=== PATIENT | female | born 1970 | race Caucasian/White ===

== ENCOUNTER 2016-08-22 10:32 | Outpatient (CLI) | payer MEDICAID | END 2016-08-22 10:33 | disposition home or self-care (01) | DX: Z53.9 Procedure and treatment not carried out, unspecified reason (principal) ==

== ENCOUNTER 2016-08-23 10:47 | Outpatient (CLI) | payer MEDICAID | END 2016-08-23 10:48 | disposition home or self-care (01) | DX: N64.52 Nipple discharge (principal) ==

== ENCOUNTER 2016-09-11 08:49 | Outpatient (CLI) | payer MEDICAID | END 2016-09-11 08:50 | disposition home or self-care (01) | DX: N39.0 Urinary tract infection, site not specified (principal) ==

== ENCOUNTER 2017-01-23 16:39 | Outpatient (CLI) | payer MEDICAID | END 2017-01-23 16:40 | LOC: LAB.R 16:39 | PROVIDERS: ATTEND Nurse Practitioner Gerontology | DX: N39.0 Urinary tract infection, site not specified (principal) | CPT/HCPCS: 87086 ==

== ENCOUNTER 2017-06-22 08:57 | Emergency (ER) | payer MEDICAID ==
--- NOTE | 2017-06-22 09:39 | ED Physician Documentation ---
History of Present Illness - Stated complaint Stated Complaint: RAPID HEARTBEAT - Chief complaint Chief Complaint: General - History obtained from History obtained from: Patient - History of Present Illness Timing: Prior to arrival (Pt states that for the last week she has had multiple episodes of palpitations, no chest pain with them, some dizziness, no headache. Has not had symptoms while in the ER>) Review of Systems Constitutional: denies: Fever, Chills Eyes: denies: Photophobia Ears: denies: Tinnitus/ringing Throat: denies: Sore throat Cardiac: reports: Palpitations. denies: Chest pain / pressure, Pedal edema Respiratory: denies: Dyspnea, Cough GI: denies: Abdominal Pain, Nausea, Vomiting, Constipation, Diarrhea : reports: Dysuria. 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 - Present Medications Home Medications: Ambulatory Orders Medication Instructions Recorded Confirmed Albuterol [Ventolin Hfa] 2 puffs INH BID 07/28/14 06/22/17 Fluticasone/Salmeterol 100/50 2 puffs PO BID 07/28/14 06/22/17 [Advair 100 Mcg/50 Mcg] Propranolol [Inderal] 5 mg PO DAILY 07/28/14 06/22/17 QUEtiapine [SEROquel] 600 mg PO DAILY 07/28/14 06/22/17 diphenhydrAMINE [Benadryl] 50 mg PO DAILY 07/28/14 06/22/17 Cetirizine [ZyrTEC] 10 mg PO DAILY 12/30/15 06/22/17 Gabapentin [Neurontin] 1 cap PO TID 06/22/17 06/22/17 buPROPion [Wellbutrin Sr] 1 tab PO DAILY 06/22/17 06/22/17 risperiDONE [RisperDAL] 2 mg PO BID 06/22/17 06/22/17 - Allergies Allergies/Adverse Reactions: Allergies Allergy/AdvReac Type Severity Reaction Status Date / Time No Known Drug Allergies Allergy Verified 07/28/14 14:01 - Social History Does the pt smoke?: No Smoking Status: Former smoker Does the pt drink ETOH?: No Does the pt have substance abuse?: No - Immunizations Immunizations are current?: Yes - POLST Patient has POLST: No PD ED PE NORMAL - General General: Alert and oriented X 3 - HEENT HEENT: Atraumatic, PERRL, EOMI, Moist mucous membranes - Cardiac Cardiac: RRR, No murmur, No gallop, No rub - Respiratory Respiratory: No respiratory distress, Clear bilaterally - Abdomen Abdomen: Soft, Non tender, Non distended - Back Back: No CVA TTP - Derm Derm: Normal color, Warm and dry, No rash - Extremities Extremities: No edema - Neuro Neuro: Alert and oriented X 3 Eye Opening: Spontaneous Motor: Obeys Commands Verbal: Oriented GCS Score: 15 - Psych Psych: Normal mood, Normal affect Results - Vitals Vitals: Vital Signs - 24 hr 06/22/17 06/22/17 09:15 11:06 Temperature 36.4 C L 36.4 C L Heart Rate 95 93 Respiratory 24 24 Rate Blood Pressure 118/79 113/80 O2 Saturation 94 95 Oxygen O2 Source Room air - EKG (time done) 0909 Rate: Rate (enter#) Rhythm: NSR [place]: Normal Intervals: Normal [place], QRS normal QRS: Normal Ischemia: Normal ST segments - Labs Labs: Laboratory Tests 06/22/17 06/22/17 06/22/17 10:07 10:07 10:07 WBC 4.4 L RBC 4.26 Hgb 13.4 Hct 39.5 MCV 92.8 MCH 31.4 H MCHC 33.9 RDW 14.2 Plt Count 190 MPV 9.2 Neut # 2.5 Lymph # 1.4 L [place] # 0.4 Eos # 0.1 Baso # 0.0 Absolute Nucleated RBC 0.00 Nucleated RBC % 0.0 Sodium 137 Potassium 4.0 Chloride 105 Carbon Dioxide 22 Anion Gap 10.0 BUN 9 Creatinine 0.8 Estimated GFR (MDRD) 77 L Glucose 107 H Calcium 9.0 Total Bilirubin 0.3 AST 24 ALT 25 Alkaline Phosphatase 64 Total Protein 6.8 Albumin 3.8 Globulin 3.0 Albumin/Globulin Ratio 1.3 Lipase 25 TSH 1.72 Urine Color Urine Clarity Urine pH Ur Specific [place] Urine Protein Urine Glucose (UA) Urine Ketones Urine Occult Blood Urine Nitrite Urine Bilirubin Urine Urobilinogen Ur Leukocyte Esterase Ur Microscopic Review Urine Culture Comments 06/22/17 10:12 WBC RBC Hgb Hct MCV MCH MCHC RDW Plt Count MPV Neut # Lymph # [place] # Eos # Baso # Absolute Nucleated RBC Nucleated RBC % Sodium Potassium Chloride Carbon Dioxide Anion Gap BUN Creatinine Estimated GFR (MDRD) Glucose Calcium Total Bilirubin AST ALT Alkaline Phosphatase Total Protein Albumin Globulin Albumin/Globulin Ratio Lipase TSH Urine Color YELLOW Urine Clarity CLEAR Urine pH 7.0 Ur Specific [place] <=1.005 Urine Protein NEGATIVE Urine Glucose (UA) NEGATIVE Urine Ketones NEGATIVE Urine Occult Blood NEGATIVE Urine Nitrite NEGATIVE Urine Bilirubin NEGATIVE Urine Urobilinogen 0.2 (NORMAL) Ur Leukocyte Esterase NEGATIVE Ur Microscopic Review NOT INDICATED Urine Culture Comments NOT INDICATED - Rads (name of study) CXR Radiology: Final report received, EMP read contemporaneously PD MEDICAL DECISION MAKING - ED course Complexity details: d/w patient ED course: Pt w/o symptoms while here in the ER> labs unremarkable. TSH normal, ECG unremarkable. Pt states that she feels like this may have been anxiety. We discussed her symptoms. She was informed that she needed to follow up with her primary care provider to discuss further treatment and evaluation. she was given return precautions and expressed understanding. Departure - Departure Disposition: 01 Home, Self Care Clinical Impression: Palpitations Condition: Good Instructions: Heart Palpitations Follow-Up: Geraldine Madden ARNP [Primary Care Provider] - Comments: Follow up with your primary care provider and return to the ER for any new or worsening symptoms.
--- NOTE | 2017-06-22 10:12 | XRAY Preliminary Report ---
Exam: XR CHEST 2 VIEW PA/LAT IMPRESSION: No evidence for acute cardiopulmonary process. [facility] SITE ID: [id number]
--- NOTE | 2017-06-22 10:15 | XRAY Report ---
EXAM: CHEST RADIOGRAPHY EXAM DATE: 06/22/2017 09:52 AM. CLINICAL HISTORY: Palpitations. COMPARISON: 07/28/2014. TECHNIQUE: 2 views. FINDINGS: Lungs/Pleura: No focal opacities evident. No pleural effusion. No pneumothorax. Normal volumes. Mediastinum: Heart and mediastinal contours are unremarkable. Other: None. IMPRESSION: No evidence for acute cardiopulmonary process. [facility] Referring Provider Line: [phone] SITE ID: [id number]
[2017-06-22 10:20] LABS: BASOPHILS % (AUTO) 0.8 %; EOSINOPHILS # (AUTO) 0.1 10^3/uL (0.0-0.7); EOSINOPHILS % (AUTO) 3.4 %; HCT - HEMATOCRIT 39.5 % (37.0-47.0); HGB - HEMOGLOBIN 13.4 g/dL (12.0-16.0); LYMPHOCYTES # (AUTO) 1.4 10^3/uL (1.5-3.5); LYMPHOCYTES % (AUTO) 31.2 %; MEAN CORPUSCULAR HEMOGLOBIN 31.4 pg (27.0-31.0); MEAN CORPUSCULAR HGB CONC 33.9 g/dL (32.0-36.0); MEAN CORPUSCULAR VOLUME 92.8 fL (81.0-99.0); MEAN PLATELET VOLUME 9.2 fL (7.9-10.8); MONOCYTES # (AUTO) 0.4 10^3/uL (0.0-1.0); MONOCYTES % (AUTO) 8.2 %; NEUTROPHILS # (AUTO) 2.5 10^3/uL (1.5-6.6); NEUTROPHILS % (AUTO) 56.4 %; RED BLOOD COUNT 4.26 10^6/uL (4.20-5.40); RED CELL DISTRIBUTION WIDTH 14.2 % (12.0-15.0); UNCORRECTED WHITE BLOOD COUNT 4.4 x10^3/uL; WHITE BLOOD COUNT 4.4 x10^3/uL (4.8-10.8)
[2017-06-22 10:35] LABS: ALBUMIN/GLOBULIN RATIO 1.3 (1.0-2.2); BILIRUBIN,TOTAL 0.3 mg/dL (0.2-1.0); CREATININE 0.8 mg/dL (0.4-1.0); TOTAL PROTEIN 6.8 g/dL (6.7-8.2)
[2017-06-22 10:44] LABS: BILIRUBIN,URINE NEGATIVE (NEGATIVE)
[2017-06-22 10:48] LABS: UA CHARGE (STRIP ONLY) YES; UR CULTURE IF IND NOT INDICATED
[2017-06-22 11:07] VITALS: BP 113/80
== END 2017-06-22 11:49 | disposition home or self-care (01) ==
LOC: ED 08:57
DX: R00.2 Palpitations (principal); J44.9 Chronic obstructive pulmonary disease, unspecified; J45.909 Unspecified asthma, uncomplicated; Z87.891 Personal history of nicotine dependence
CPT/HCPCS: 36415; 71020; 80053; 81001; 81003; 83690; 84443; 85025; 87086; 93005; 99283; 99284

== ENCOUNTER 2017-09-28 06:13 | Emergency (ER) | payer MEDICAID ==
--- NOTE | 2017-09-28 06:40 | ED Physician Documentation ---
PD HPI BACK INJURY - Stated complaint Stated Complaint: LOWER BACK PX/FELL - History obtained from History obtained from: Patient - History of Present Illness Location: Left Type of injury: Fall Where injury occurred: Home Timing - onset: Enter time (08:30), Yesterday Timing - details: Abrupt onset Quality: Pain Improved by: Rest Worsened by: Moving Associated symptoms: No: Weakness, Numbness Recently seen: Not recently seen - Additional information Additional information: slipped on snow/ice and fell outside of her home yesterday morning, c/o left low back pain. inadequate relief with ibuprofen. She had similar injury 2 years ago and had good relief with IM toradol and she specifically requests this medication. Review of Systems GI: denies: Abdominal Pain Musculoskeletal: reports: Back pain. 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 Home Medications: Ambulatory Orders Medication Instructions Recorded Confirmed Albuterol [Ventolin Hfa] 2 puffs INH BID 07/28/14 06/22/17 Fluticasone/Salmeterol 100/50 2 puffs PO BID 07/28/14 06/22/17 [Advair 100 Mcg/50 Mcg] Propranolol [Inderal] 5 mg PO DAILY 07/28/14 06/22/17 QUEtiapine [SEROquel] 600 mg PO DAILY 07/28/14 06/22/17 diphenhydrAMINE [Benadryl] 50 mg PO DAILY 07/28/14 06/22/17 Cetirizine [ZyrTEC] 10 mg PO DAILY 12/30/15 06/22/17 Gabapentin [Neurontin] 1 cap PO TID 06/22/17 06/22/17 buPROPion [Wellbutrin Sr] 1 tab PO DAILY 06/22/17 06/22/17 risperiDONE [RisperDAL] 2 mg PO BID 06/22/17 06/22/17 Cyclobenzaprine [Flexeril] 10 mg PO TID PRN #20 tablet 09/28/17 Ketorolac [Toradol] 10 mg PO Q6H PRN #20 tablet 09/28/17 diazePAM [Valium] 5 - 10 mg PO TID PRN #15 tablet 09/28/17 - Allergies Allergies/Adverse Reactions: Allergies Allergy/AdvReac Type Severity Reaction Status Date / Time No Known Drug Allergies Allergy Verified 09/28/17 06:23 - Social History Does the pt smoke?: No Smoking Status: Never smoker Does the pt drink ETOH?: No Does the pt have substance abuse?: No - Immunizations Immunizations are current?: Yes - POLST Patient has POLST: No PD ED PE NORMAL - Vitals Vital signs reviewed: Yes - General General: Alert and oriented X 3, No acute distress (NAD at rest but appears to have painful discomfort with movement involving lower back), Well developed/ nourished - Back Back: No CVA TTP, No spinal TTP, Other (TTP left paralumbar region) - Derm Derm: Normal color, Warm and dry - Extremities Extremities: No tenderness to palpate, Normal ROM s pain, No edema - Neuro Neuro: No motor deficit, No sensory deficit Results - Vitals Vitals: Oxygen O2 Source Room air PD MEDICAL DECISION MAKING - ED course Complexity details: considered differential, d/w patient ED course: Patient says she is recovering alcoholic and does not want any opiate pain medication. I discussed muscle relaxants and she says she has not had problems with these in the past, and thus given flexeril rx. I also provided toradol rx and instructed her to not take ibuprofen within 6 hours of toradol Departure - Departure Disposition: 01 Home, Self Care Clinical Impression: Back strain Qualifiers: Encounter type: initial encounter Qualified Code(s): S39.012A - Strain of muscle, fascia and tendon of lower back, initial encounter Condition: Good Instructions: ED Back Care Tips, ED Sprain Strain Lumbar Follow-Up: Geraldine Madden PHARMACY INTAKE TECHNICIAN [Primary Care Provider] - Within 1 week Prescriptions: Cyclobenzaprine [Flexeril] 10 mg PO TID PRN #20 tablet PRN Reason: Spasms diazePAM [Valium] 5 - 10 mg PO TID PRN #15 tablet PRN Reason: Spasms Ketorolac [Toradol] 10 mg PO Q6H PRN #20 tablet PRN Reason: Pain Comments: You can try the Toradol in place of the ibuprofen, but do not take these medications within 6 hours of each other. If the flexeril is inadequate for reducing muscle spasm, you can take the valium instead. Discharge Date/Time: 09/28/17 08:00
[2017-09-28] MEDS ORDERED: KETOROLAC 60 MG/2 ML VIAL IM STA (07:08)
[2017-09-28] MEDS ORDERED: CYCLOBENZAPRINE 10 MG TABLET PO STA (07:08)
[2017-09-28 08:00] VITALS: BP 113/77
== END 2017-09-28 08:00 | disposition home or self-care (01) ==
LOC: ED 06:13
DX: S39.012A Strain of muscle, fascia and tendon of lower back, initial encounter (principal); W00.0XXA Fall on same level due to ice and snow, initial encounter; Y92.009 Unspecified place in unspecified non-institutional (private) residence as the place of occurrence of the external cause
CPT/HCPCS: 96372; 99283; A9270

== ENCOUNTER 2017-10-09 08:00 | Outpatient (CLI) | payer MEDICAID ==
[2017-10-09 13:26] LABS: ALBUMIN 3.8 g/dL (3.2-5.5); ALBUMIN/GLOBULIN RATIO 1.4 (1.0-2.2); BILIRUBIN,TOTAL 0.2 mg/dL (0.2-1.0); CALCIUM 8.9 mg/dL (8.5-10.3); TOTAL PROTEIN 6.6 g/dL (6.7-8.2)
== END 2017-10-09 08:01 | disposition home or self-care (01) ==
LOC: LAB.N 08:00
PROVIDERS: ATTEND Nurse Practitioner Gerontology
DX: Z79.899 Other long term (current) drug therapy (principal)
CPT/HCPCS: 36415; 80053

== ENCOUNTER 2017-12-17 08:00 | Outpatient (CLI) | payer MEDICAID ==
[2017-12-17 13:14] LABS: ALBUMIN 3.7 g/dL (3.2-5.5); ALBUMIN/GLOBULIN RATIO 1.3 (1.0-2.2); BILIRUBIN,TOTAL 0.5 mg/dL (0.2-1.0); CALCIUM 8.8 mg/dL (8.5-10.3); CREATININE 0.7 mg/dL (0.4-1.0); TOTAL PROTEIN 6.6 g/dL (6.7-8.2)
== END 2017-12-17 08:01 | disposition home or self-care (01) ==
LOC: LAB.N 08:00
PROVIDERS: ATTEND Nurse Practitioner Gerontology
DX: Z79.899 Other long term (current) drug therapy (principal)
CPT/HCPCS: 36415; 80053

== ENCOUNTER 2018-02-18 07:28 | Day surgery (SDC) | payer MEDICAID ==
[2018-02-18] MEDS ORDERED: ceFAZolin 2 GM/50 ML 2 GM/50 ML BAG IV ONE (07:47)
[2018-02-18] MEDS ORDERED: LACTATED RINGERS 1,000 ML IV ONE ×3 (08:05→11:22)
[2018-02-18] MEDS ORDERED: IPRATROPIUM/ALBUTEROL 3 ML NEB INH ONE (08:09)
--- NOTE | 2018-02-18 09:05 | ANESTHESIA ---
Pre-Anesthesia VS, & Labs umbilical hernia open umbilical hernia repair with mesh Vital Signs: Temp Pulse Resp BP Pulse Ox 36.6 C 85 16 113/74 97 02/18/18 07:42 02/18/18 07:42 02/18/18 07:42 02/18/18 07:42 02/18/18 07:42 Height and Weight: Height 5 ft 10 in Weight (kg) 98.9 kg Body Mass Index 30.8 - NPO NPO: >8 hours Home Medications and Allergies Home Medications: Ambulatory Orders Medication Instructions Recorded Confirmed Albuterol [Ventolin Hfa] 2 puffs INH BID 07/28/14 02/15/18 Fluticasone/Salmeterol 100/50 2 puffs PO BID 07/28/14 02/15/18 [Advair 100 Mcg/50 Mcg] QUEtiapine [SEROquel] 600 mg PO DAILY 07/28/14 02/15/18 diphenhydrAMINE [Benadryl] 50 mg PO DAILY 07/28/14 02/15/18 Cetirizine [ZyrTEC] 10 mg PO DAILY 12/30/15 02/15/18 Gabapentin [Neurontin] 1 cap PO TID 06/22/17 02/15/18 buPROPion [Wellbutrin Sr] 1 tab PO DAILY 06/22/17 02/15/18 risperiDONE [RisperDAL] 2 mg PO BID 06/22/17 02/15/18 Cholecalciferol [Vitamin D3] 5,000 unit PO DAILY 02/15/18 02/15/18 Citalopram [CeleXA] 40 mg PO DAILY 02/15/18 02/15/18 Cyanocobalamin (Vitamin B-12) 1,000 mcg PO DAILY 02/15/18 02/15/18 [Vitamin B-12] Lysine HCl 600 mg PO DAILY 02/15/18 02/15/18 Multivitamin [Multivitamins] 1 each PO DAILY 02/15/18 02/15/18 Multivits Min/Iron/FA/Herb#186 1 each PO DAILY 02/15/18 02/15/18 [Hair, Skin and Nails Caplet] [place]-3/Dha/Epa/Fish Oil [Fish Oil 1 each PO TID 02/15/18 02/15/18 500 mg Softgel] Potassium Gluconate 99 mg PO DAILY 02/15/18 02/15/18 Sennosides/Docusate Sodium [Stool 1 each PO TID 02/15/18 02/15/18 Softener-Laxative Tablet] Allergies/Adverse Reactions: Allergies Allergy/AdvReac Type Severity Reaction Status Date / Time No Known Drug Allergies Allergy Verified 02/18/18 08:09 Anes History & Medical History - Anesthetic History Anesthesia Complications: reports: No previous complications - Airway/Dental Dental: Dentures full Upper, Dentures full Lower Neck Mobility: Normal Mallampati classification: I Thyromental Distance: greater than 6 cm - Medical History Cardiovascular: reports: None Pulmonary: reports: Asthma, COPD Gastrointestinal: reports: None Urinary: reports: None Neuro: reports: None Musculoskeletal: reports: None Endocrine/Autoimmune: reports: None Blood Disorders: reports: None Skin: reports: None Smoking Status: Never smoker Psychosocial: reports: Alcohol (history of abuse, sober for 6 years) - Surgical History Orthopedic: Other Dermatologic: Skin grafts - Other History Other History: past tubal ligation, c/s x2 Exam General: Alert Respiratory: Other (course, denies SOB, I expect is baseline) Cardiovascular: Regular rate, Normal S1, Normal S2 Mental/Cognitive Status: Alert/Oriented X3 Cognitive Status: Within normal limits Plan Anesthesia Type: General (patient wished general, alternatives (SAB) discussed) ASA classification: 2-Mild systemic disease Is this case an emergency?: No
[2018-02-18 09:12] LABS: HCG UR QUAL NEGATIVE
[2018-02-18] MEDS ORDERED: BUPIVACAINE 0.5%-EPI 1:200000 PF 10 ML VIAL ONE (09:55)
[2018-02-18] MEDS ORDERED: DEXAMETHASONE 4 MG/ML VIAL IVP ONE (10:00)
[2018-02-18] MEDS ORDERED: fentaNYL 100 MCG/2 ML VIAL IVP ONE (10:00)
[2018-02-18] MEDS ORDERED: ONDANSETRON 4 MG/2 ML VIAL IVP ONE (10:00)
[2018-02-18] MEDS ORDERED: MIDAZOLAM 2 MG/2 ML VIAL IVP ONE (10:00)
[2018-02-18] MEDS ORDERED: PROPOFOL 200 MG/20 ML VIAL IVP ONE (10:00)
[2018-02-18] MEDS ORDERED: LIDOCAINE-MPF 2% 5 ML VIAL IM ONE (10:00)
[2018-02-18] MEDS ORDERED: KETOROLAC 30 MG/ML VIAL IVP ONE (10:00)
[2018-02-18] MEDS ORDERED: BUPIVACAINE 0.5%-EPI 1:200000 PF 30 ML VIAL SUBQ ONE ×2 (10:34)
[2018-02-18] MEDS ORDERED: BUPIVACAINE 0.5%-EPI 1:200000 PF 30 ML VIAL ONE (10:35)
[2018-02-18] MEDS ORDERED: ceFAZolin 1 GM VIAL IR ONE (10:51)
[2018-02-18] MEDS ORDERED: ACETAMINOPHEN 1,000 MG/100 ML 100 ML IV ONE (12:05)
[2018-02-18 12:55] VITALS: BP 124/68
--- NOTE | 2018-02-18 16:53 | OPERATIVE REPORT ---
DATE OF SERVICE: 02/18/2018 Physician: Sincere Deleon MD PREOPERATIVE DIAGNOSIS: Symptomatic umbilical hernia. POSTOPERATIVE DIAGNOSES 1. Symptomatic umbilical hernia. 2. Supraumbilical ventral hernia. PROCEDURE PERFORMED: Open repair of both hernias with Ventralex soft tissue hernia patch. ANESTHESIA: General LMA by Home [facility] CRNA. SURGEON: Sincere Deleon MD ESTIMATED BLOOD LOSS: Minimal. DRAINS: None. COMPLICATIONS: None. FINDINGS: Two hernias were seen to be present including an umbilical hernia with a 1.5 cm fascial defect with preperitoneal fat comprising the contents of the hernia sac and cephalad to that by approximately 1 cm was a second transversely oriented 10 mm ventral hernia, also with preperitoneal fat present comprising hernia contents. A 4 cm Ventralex hernia patch was used for the reconstruction placing it in a preperitoneal location. INDICATIONS: Patient is a 47-year-old woman with a history of an increasingly painful umbilical bulge. Examination revealed a reducible umbilical hernia. She was advised to undergo elective repair. TECHNIQUE: After informed consent, patient was taken to the operating room where she was placed under general laryngeal mask anesthesia. Preoperative preparation included application of sequential calf compression boots and administration of 2 grams cefazolin intravenously within an hour of the incision. Her abdomen was prepared with ChloraPrep solution and draped in the usual sterile fashion. A transverse incision made along the inferior edge of the umbilicus and carried down through subcutaneous tissues until the anterior fascia was identified. Hemostasis achieved with electrocautery and 2-0 Vicryl ties. The umbilical dermis was dissected off of the underlying hernia sac, which was mobilized circumferentially exposing the neck of the sac. The hernia sac was excised with electrocautery and discarded. Hernia contents were seen to be preperitoneal fat and were ligated with 2-0 Vicryl, amputated, and discarded. The fascial edges were mobilized circumferentially in a preperitoneal location and cephalad to this hernia. A second hernia was identified, also containing preperitoneal fat. Contents were also reduced and the 2 fascial defects were converted to 1 by dividing vertically at the fascial bridge the 2 creating a common defect of approximately 2.5 cm in diameter. After hemostasis was assured, the preperitoneal space was exposed and mobilized circumferentially sufficient to allow placement of a 4.5 cm Ventralex patch, which had been soaked in the antibiotic solution containing 1 gram of Ancef per liter. The patch was placed in the preperitoneal position with the straps holding it in place while the anterior fascia was closed overlying the mesh with interrupted 0 Ethibond sutures. Excess mesh of the straps were then excised. The Ethibond sutures incorporated the straps of the mesh to anchor it in place. After hemostasis was assured, the wound was irrigated again with the antibiotic solution following which wound closure was accomplished in layers using 2-0 Vicryl to reapproximate the umbilical dermis to the anterior fascia and also to reapproximate the deep subcutaneous fat, followed by 3-0 Vicryl for the superficial subcutaneous tissues, followed by 4-0 Monocryl subcuticular skin closure, followed by Dermabond. Anesthesia was terminated. The patient was transferred to the recovery room in satisfactory condition. Sponge and needle counts were correct x2. No drains were used. TD: 02/18/2018 11:49
== END 2018-02-18 07:29 | disposition home or self-care (01) ==
LOC: SDS 07:28
PROVIDERS: ATTEND Internal Medicine Gastroenterology
PROC: 0WUF0JZ Supplement Abdominal Wall with Synthetic Substitute, Open Approach (ICD-10-PCS; principal; 2018-02-18 08:45)
DX: K42.9 Umbilical hernia without obstruction or gangrene (principal); K43.9 Ventral hernia without obstruction or gangrene; J45.909 Unspecified asthma, uncomplicated; Z87.891 Personal history of nicotine dependence; E66.9 Obesity, unspecified; Z68.34 Body mass index [BMI] 34.0-34.9, adult; Z79.899 Other long term (current) drug therapy
CPT/HCPCS: 49585; 81025; C1781; J0131; J0690; J7120

== ENCOUNTER 2018-03-30 12:39 | Emergency (ER) | payer MEDICAID ==
[2018-03-30] MEDS ORDERED: IPRATROPIUM/ALBUTEROL 3 ML NEB INH STA (13:16)
[2018-03-30] MEDS ORDERED: DEXAMETHASONE 10 MG/ML VIAL PO STA (13:26)
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
[2018-03-30] MEDS ORDERED: CHERRY SYRUP 10 ML UDC PO ONE (13:38)
[2018-03-30 13:46] VITALS: BP 107/72
== END 2018-03-30 13:48 | disposition home or self-care (01) ==
LOC: ED 12:39
DX: R06.02 Shortness of breath (principal); R06.2 Wheezing; J44.9 Chronic obstructive pulmonary disease, unspecified; Z87.891 Personal history of nicotine dependence
CPT/HCPCS: 93005; 94640; 94664; 99283; A9270

== ENCOUNTER 2018-09-24 09:08 | Outpatient (CLI) | payer MEDICAID ==
--- NOTE | 2018-09-25 08:42 | Mammography Report ---
Reason: SCREENING MAMMO Procedure Date: 09/24/2018 Accession Number: [id number] / [id number] Procedure: MGN - Screening Mammo Dig Bilat CPT Code: FULL RESULT: EXAM: Screening Mammo Dig Bilat DATE: 09/24/2018 9:36 AM CLINICAL HISTORY: Screening encounter. History of early menses. TECHNIQUE: Bilateral CC and MLO views were obtained. COMPARISON: None FINDINGS: The breasts demonstrate diffuse fatty replacement bilaterally. No suspicious masses, clustered microcalcifications, or regions of architectural distortion are identified. IMPRESSION: Negative examination RECOMMENDATION: Routine annual screening unless otherwise clinically indicated. BIRADS CATEGORY 1: Negative STANDARD QUALIFYING STATEMENTS: 1. This examination was reviewed with the aid of Computer-Aided Detection (CAD). 2. A negative or benign imaging report should not delay biopsy if clinically suspicious findings are present. Consider surgical consultation if warrented. More than 5% of cancers are not identified by imaging. 3. Dense breasts may obscure an underlying neoplasm.
== END 2018-09-24 09:09 | disposition home or self-care (01) ==
LOC: DI.N 09:08
PROVIDERS: ATTEND Internal Medicine
DX: Z12.31 Encounter for screening mammogram for malignant neoplasm of breast (principal)
CPT/HCPCS: 77067

== ENCOUNTER 2018-12-31 09:43 | Outpatient (CLI) | payer MEDICAID ==
--- NOTE | 2018-12-31 13:19 | XRAY Report ---
Reason: UNSPECIFIED OSTEOARTHRITIS, UNSPECIFIED SITE Procedure Date: 12/31/2018 Accession Number: [id number] / [id number] Procedure: XRN - Knee 3 View LT CPT Code: FULL RESULT: EXAM: LEFT KNEE RADIOGRAPHY 3 VIEWS EXAM DATE: 12/31/2018. CLINICAL HISTORY: Left knee pain for 2 months. COMPARISON: None. TECHNIQUE: AP, lateral and sunrise views. FINDINGS: Bones: Normal. No fractures or bone lesions. Joints: Mild lateral patellar tilt, approximately 12 degrees. Otherwise no subluxation. No effusion. Soft Tissues: Normal. No soft tissue swelling. IMPRESSION: Mild lateral patellar tilt. Otherwise normal examination. RADIA
== END 2018-12-31 09:44 | disposition home or self-care (01) ==
LOC: DI.N 09:43
PROVIDERS: ATTEND Family Medicine
DX: M19.90 Unspecified osteoarthritis, unspecified site (principal)

== ENCOUNTER 2019-02-18 09:07 | Outpatient (CLI) | payer MEDICAID ==
--- NOTE | 2019-02-19 11:31 | XRAY Report ---
Reason: OTHER ASTHMA Procedure Date: 02/18/2019 Accession Number: [id number] / [id number] Procedure: XR - Chest 2 View X-Ray CPT Code: 08741 FULL RESULT: EXAM: CHEST RADIOGRAPHY EXAM DATE: 02/18/2019 09:18 AM. CLINICAL HISTORY: Patient states lung sounds are worsening with severe allergies. Known asthmatic. COMPARISON: CHEST 2 VIEW PA/LAT 06/22/2017 9:41 AM. TECHNIQUE: 2 views. FINDINGS: Lungs/Pleura: Bilateral airway thickening can be seen in the setting of bronchiolitis or reactive airways disease, overall similar appearance to 2017. No focal lung parenchymal consolidation identified to suggest superimposed pneumonia. Minimal linear density in the lateral lower left lung anteriorly, lingula, has an appearance most suggestive of small amount of subsegmental atelectasis, new finding. No sizable pleural effusion or pneumothorax. Mediastinum: Heart and mediastinal contours are unremarkable. Other: None. IMPRESSION: Mild airway thickening and questionably small amount of subsegmental atelectasis in the lingula. RADIA
== END 2019-02-18 09:08 | disposition home or self-care (01) ==
LOC: DI 09:07
PROVIDERS: ATTEND Internal Medicine
DX: J45.998 Other asthma (principal)
CPT/HCPCS: 71046

== ENCOUNTER 2020-04-04 08:47 | Emergency (ER) | payer BC, MEDICAID ==
--- NOTE | 2020-04-04 09:36 | XRAY Report ---
PROCEDURE: Ankle 3 View RT INDICATIONS: pain/swelling TECHNIQUE: 3 views of the ankle were acquired. COMPARISON: None FINDINGS: Bones: No fractures or dislocations. Ankle mortise is normally aligned. No suspicious bony lesions . The talar dome demonstrates an unremarkable appearance. A plantar calcaneal spur is incidentall y noted. An accessory ossicle is seen, an os trigonum. Soft tissues: Generalized soft tissue swelling is seen. IMPRESSION: Soft tissue swelling is seen, without an acute bony abnormality identified. Reviewed by: Lloyd Jameson MD on 04/04/2020 8:34 AM RONAL Approved by: Lloyd Jameson MD on 04/04/2020 8:34 AM RONAL Station ID: [id number]
--- NOTE | 2020-04-04 09:57 | ED Physician Documentation ---
PD HPI LOWER EXT INJURY - Stated complaint Stated Complaint: RT LEG PX/ANKLE SWELLING - Chief complaint Chief Complaint: Ext Problem - History obtained from History obtained from: Patient - Additional information Additional information: Patient comes emergency department complaining of pain and swelling of her right lower extremity for the last few weeks, worsening. Patient states she wore a pair of boots that was too big, and this resulted in instability with walking, which caused what seemed like some calf and ankle strain. Patient states that she has noticed pain in her ankle and her calf since, and progressive swelling that has been pooling in her ankle and foot. Patient states that now, she has a clicking in her knee and that her knee hurts. Patient states she has had right knee problems for some time and was told that she has a tracking issue with her patella. She was seen an orthopedist about it for a while, but was told she does not need surgery and at this time, she should just manage it conservatively. Patient has not seen Ortho since. The patient denies any history of DVT personally or in the family. She denies any other injury to the area. No chest pain or shortness of breath. No other complaints at this time. Review of Systems Ten Systems: 10 systems reviewed and negative Constitutional: reports: Reviewed and negative Eyes: reports: Reviewed and negative Ears: reports: Reviewed and negative Nose: reports: Reviewed and negative Throat: reports: Reviewed and negative Cardiac: reports: Reviewed and negative Respiratory: reports: Reviewed and negative GI: reports: Reviewed and negative : reports: Reviewed and negative Skin: reports: Reviewed and negative Musculoskeletal: reports: Extremity pain, Extremity swelling, Joint swelling Neurologic: reports: Reviewed and negative Psychiatric: reports: Reviewed and negative Endocrine: reports: Reviewed and negative Immunocompromised: reports: Reviewed and negative PD PAST MEDICAL HISTORY - Past Medical History Past Medical History: Yes Cardiovascular: None Respiratory: Asthma, COPD Neuro: None Endocrine/Autoimmune: None GI: None : None HEENT: None Psych: None Musculoskeletal: None Derm: None - Past Surgical History Past Surgical History: Yes 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, 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 Derm: Skin grafts - Present Medications Home Medications: Ambulatory Orders Medication Instructions Recorded Confirmed Albuterol [Ventolin Hfa] 2 puffs INH BID 07/28/14 02/15/18 QUEtiapine [SEROquel] 400 mg PO DAILY 07/28/14 04/04/20 diphenhydrAMINE [Benadryl] 50 mg PO DAILY 07/28/14 02/15/18 Cetirizine [ZyrTEC] 10 mg PO DAILY 12/30/15 02/15/18 Gabapentin [Neurontin] 600 mg PO TID 06/22/17 04/04/20 buPROPion [Wellbutrin Sr] 150 mg PO DAILY 06/22/17 04/04/20 risperiDONE [RisperDAL] 2 mg PO BID 06/22/17 04/04/20 Cholecalciferol [Vitamin D3] 5,000 unit PO DAILY 02/15/18 02/15/18 Citalopram [CeleXA] 40 mg PO DAILY 02/15/18 04/04/20 Cyanocobalamin (Vitamin B-12) 1,000 mcg PO DAILY 02/15/18 02/15/18 [Vitamin B-12] Lysine HCl 600 mg PO DAILY 02/15/18 02/15/18 Multivit-Min/Iron/Folic/Kds030 1 each PO DAILY 02/15/18 02/15/18 [Hair, Skin and Nails Caplet] Champion-3/Dha/Epa/Fish Oil [Fish Oil 1 each PO TID 02/15/18 02/15/18 500 mg Softgel] Potassium Gluconate 99 mg PO DAILY 02/15/18 02/15/18 Sennosides/Docusate Sodium [Stool 1 each PO TID 02/15/18 02/15/18 Softener-Laxative Tablet] Albuterol Sulf [Ventolin Hfa 1 - 2 puffs INH Q4HR PRN #1 inhaler 03/30/18 Inhaler] - Allergies Allergies/Adverse Reactions: Allergies Allergy/AdvReac Type Severity Reaction Status Date / Time No Known Drug Allergies Allergy Verified 04/04/20 09:05 - Social History Does the pt smoke?: No Smoking Status: Former smoker Does the pt drink ETOH?: No Does the pt have substance abuse?: No - Immunizations Immunizations are current?: Yes - POLST Patient has POLST: No PD ED PE NORMAL - Vitals Vital signs reviewed: Yes - General General: Alert and oriented X 3, No acute distress, Well developed/nourished - HEENT HEENT: Atraumatic, PERRL, EOMI, Moist mucous membranes - Neck Neck: Supple, no meningeal sign - Cardiac Cardiac: RRR, No murmur, Strong equal pulses - Respiratory Respiratory: No respiratory distress, Clear bilaterally - Derm Derm: Normal color, Warm and dry, No rash - Extremities Extremities: No deformity, No edema (Marked edema of right ankle/foot, with lessening edema proximally. No cords. No point tenderness or swelling of right knee. No instability. No popping or clicking with movement. Full range of motion right ankle without deformity. No point tenderness.) - Neuro Neuro: Alert and oriented X 3 - Psych Psych: Normal mood, Normal affect Results - Vitals Vitals: Vital Signs - 24 hr 04/04/20 04/04/20 09:00 13:41 Temperature 36.0 C L 36.8 C Heart Rate 81 79 Respiratory 20 16 Rate Blood Pressure 128/82 H 125/82 H O2 Saturation 98 96 Oxygen O2 Source Room air - Rads (name of study) R ankle XR Radiology: Final report received, EMP read indepedently, See rad report (neg) US RLE Radiology: Final report received, EMP read indepedently, See rad report (Echeverria's cyst; lateral fluid collection; no DVT) PD MEDICAL DECISION MAKING - ED course Complexity details: reviewed results, re-evaluated patient, considered differential, d/w patient ED course: Pt was worked up with right ankle x-ray and ultrasound of the right leg to evaluate for possible DVT. X-ray was unremarkable. Patient did wait quite some time in the emergency department for ultrasound to be done, but this ultimately was performed and found to be negative for DVT, but did show a Echeverria's cyst, as well as another fluid collection which did not appear to be infectious.. I feel the patient stable for discharge home. We have discussed the need to elevate her leg and potentially wear compression stockings to help with the edema. She should follow-up with her primary care physician for any further concerns. Departure - Departure Disposition: 01 Home, Self Care Condition: Stable Instructions: ED Leg Swelling Unilateral, ED Strain Muscle Ext Comments: The x-ray of your ankle and the ultrasound of your leg look good, and that there is no bony injury and no evidence of a blood clot. You do have a fluid collection at the side of your calf, just below your knee. This may be inflammatory, since it has been going on for a few weeks, or it may be related to a cyst. There is no evidence of infection and no emergent condition has been identified at this time. Please wear the compression stockings, as you have been advised to do in the past and take anti-inflammatory medication, as needed. You should wear comfortable shoes that allow you to walk as normally as possible. Please follow-up with your primary care physician for further concerns. Discharge Date/Time: 04/04/20 13:45
[2020-04-04 13:42] VITALS: BP 125/82
--- NOTE | 2020-04-04 14:27 | Ultrasound Report ---
PROCEDURE: Duplex Ext Veins Right INDICATIONS: RLE swelling, calf pain TECHNIQUE: Real-time imaging, as well as color and pulse Doppler interrogation, were performed of the lower extr emity deep veins from the inguinal ligament to the popliteal fossa. COMPARISON: None. FINDINGS: The deep veins are normally compressible, and free of intraluminal thrombus. Color and pu lse Doppler demonstrate normal phasic intraluminal flow. There is normal augmentation response to di stal compression maneuver. A fluid collection can be seen involving the left knee laterally that measures 1.4 x 2.9 x 2.7 cm. Th ere is also an apparent heterogeneous Echeverria's cyst that measures 5.3 x 3.8 x 2.5 cm. IMPRESSION: No findings of deep venous thrombosis are seen. Left lateral knee fluid collection seen that measures up to 2.9 cm. 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 Reviewed by: Lloyd Jameson MD on 04/04/2020 1:25 PM RONAL Approved by: Lloyd Jameson MD on 04/04/2020 1:25 PM [id number] Station ID: [id number]
== END 2020-04-04 13:45 | disposition home or self-care (01) ==
LOC: ED 08:47
DX: M25.571 Pain in right ankle and joints of right foot (principal); M71.21 Synovial cyst of popliteal space [Baker], right knee; R60.9 Edema, unspecified; M25.40 Effusion, unspecified joint; Z87.891 Personal history of nicotine dependence
CPT/HCPCS: 99284

== ENCOUNTER 2024-01-07 20:04 | Outpatient (CLI) | payer OTHER | END 2024-01-07 23:59 | disposition critical access hospital (66) | LOC: EMS 20:04 | DX: R55 Syncope and collapse (principal); R11.0 Nausea | CPT/HCPCS: A0425; A0427 ==

== ENCOUNTER 2024-01-07 20:19 | Emergency (ER) | payer OTHER ==
--- NOTE | 2024-01-07 20:37 | ED Physician Documentation ---
History of Present Illness - Stated complaint Stated Complaint: SYNCOPE, DIZZINESS - Chief complaint Chief Complaint: Neuro - History obtained from History obtained from: Patient - Additonal information Additional information: BIBA. HPI from patient. Chief complaint is a syncopal episode. Patient says she got into bed at approximately 7 PM tonight, was about to fall asleep but never completely fell asleep. She says approximately 15 minutes later (7:15 PM), She noted gradual onset of dyspnea, dizziness, nausea but no vomiting. She is difficulty describing her dizziness but does not feel vertigo-type symptoms such as the room spinning. She then went to stand up and had syncopal episode. Patient does not remember feeling like she might pass out; rather, she says she suddenly woke up on the ground next to her bed. She estimates LOC was "a few minutes". 911 was called, and upon EMS arrival, patient then became aware that she was having difficulty with word-finding. Patient denies headache, neck pain, focal weakness, numbness. Denies visual changes. Denies chest pain. She has not had similar symptoms before occluding the dyspnea, syncope, weakness. She does not take any blood-thinning medication. She says she took Seroquel tonight, but has taken that every night for at least several months and has never had problems/side effects in the past. She also took 1 tablet of Vicodin this morning as well as 1 tablet this evening for chronic back pain; again, this is not an unusual medication for her. Lastly, she says she took 2 tablets of Benadryl this evening to help her with sleep. 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 Derm: Skin grafts - Present Medications Home Medications: Ambulatory Orders Medication Instructions Recorded Confirmed QUEtiapine [SEROquel] 400 mg PO DAILY 07/28/14 01/07/24 Gabapentin [Neurontin] 600 mg PO TID 06/22/17 01/07/24 buPROPion [Wellbutrin Sr] 150 mg PO DAILY 06/22/17 01/07/24 Celecoxib [Celebrex] 1 cap PO DAILY 01/07/24 01/07/24 Dextroamphetamine/Amphetamine 2 tab PO DAILY 01/07/24 01/07/24 [Adderall 30 mg Tablet] HYDROcod/ACETAM 5/325 [Dennard 5/325] 1 tab PO Q6H PRN 01/07/24 01/07/24 Simvastatin [Zocor] 1 tab PO DAILY PM 01/07/24 01/07/24 - Allergies Allergies/Adverse Reactions: Allergies Allergy/AdvReac Type Severity Reaction Status Date / Time No Known Drug Allergies Allergy Verified 01/07/24 20:34 - Social History Does the pt smoke?: No Smoking Status: Never smoker Does the pt drink ETOH?: No Does the pt have substance abuse?: No - Immunizations Immunizations are current?: Yes - POLST Patient has POLST: No PD ED PE NORMAL - Vitals Vital signs reviewed: Yes - General General: Alert and oriented X 3, No acute distress, Well developed/nourished - HEENT HEENT: Atraumatic, PERRL, EOMI - Neck Neck: Supple, no meningeal sign, No bony TTP - Cardiac Cardiac: RRR, No murmur, No gallop, No rub - Respiratory Respiratory: No respiratory distress, Clear bilaterally - Abdomen Abdomen: Soft, Non tender - Back Back: No spinal TTP - Derm Derm: Normal color, Warm and dry - Extremities Extremities: No edema - Neuro Neuro: Alert and oriented X 3, magnetic grinder operator 2-12 intact, No sensory deficit Eye Opening: Spontaneous Motor: Obeys Commands Verbal: Oriented GCS Score: 15 Results - Vitals Vitals: Oxygen O2 Source Room air - EKG (time done) No standard instances EKG releavant findings:: EKG personally interpreted by author of this note. Relevant findings are: Rate: Rate (enter#) (96) Rhythm: NSR [place]: Normal Intervals: Normal MA QRS: Normal Ischemia: Normal ST segments - Labs Labs: Microbiology 01/07/24 23:22 Urine Culture - Preliminary Urine,Clean Catch CULTURE IN PROGRESS. RESULTS TO FOLLOW. Laboratory Tests 01/07/24 01/07/24 01/07/24 21:44 21:44 23:22 WBC 6.1 RBC 3.80 L Hgb 12.1 Hct 36.3 L MCV 95.5 MCH 31.8 H MCHC 33.3 RDW 12.9 Plt Count 214 MPV 10.3 Neut # (Auto) 4.4 Lymph # (Auto) 1.1 L Noble # (Auto) 0.5 Eos # (Auto) 0.0 Baso # (Auto) 0.0 Absolute Nucleated RBC 0.00 Nucleated RBC % 0.0 Sodium 136 Potassium 3.6 Chloride 103 Carbon Dioxide 26 Anion Gap 7.0 BUN 19 Creatinine 0.8 Estimated GFR (MDRD) 75 L Glucose 106 H Calcium 9.2 Total Bilirubin 0.4 AST 21 ALT 21 Alkaline Phosphatase 60 Troponin I High Sens 2.5 Total Protein 6.1 L Albumin 3.8 Globulin 2.3 Albumin/Globulin Ratio 1.7 Lipase 15 Urine Color DARK YELLOW Urine Clarity CLEAR Urine pH 6.5 Ur Specific [place] <=1.005 Urine Protein NEGATIVE Urine Glucose (UA) NEGATIVE Urine Ketones NEGATIVE Urine Occult Blood NEGATIVE Urine Nitrite POSITIVE H Urine Bilirubin NEGATIVE Urine Urobilinogen 0.2 (NORMAL) Ur Leukocyte Esterase NEGATIVE Urine RBC 0-5 Urine WBC 0-3 Ur Squamous Epith Cells FEW Squamous Urine Bacteria Few Ur Microscopic Review INDICATED Urine Culture Comments INDICATED - Rads (name of study) CTH Relevant Findings:: Prelim report reviewed, See rad report CTA head/neck Relevant Findings:: Prelim report reviewed, See rad report CXR Relevant Findings:: Prelim report reviewed, See rad report PD Medical Decision Making - ED course Complexity details: reviewed results, re-evaluated patient, considered differential, d/w patient ED course: Although patient is weakness complaint is generalized, on my exam there is notable weakness lateralized and localized to the left leg. Additionally, she has mild difficulty with word finding. She is AAOx3 and answers appropriately and accurately, but she is slow to answer some questions including simple questions; she indicates this is entirely abnormal for her. Telestroke consult obtained, and the neurologist recommendation is to administer TNKase. Patient's symptoms are within a 3-hour onset by the time the TNKase is administered. The neurologist reviewed the risks and benefits of this medication with her and she expresses clear agreement with the thrombolytics/TNKase. Unremarkable workup including CTH, CTA head/neck. This includes no evidence of LVO, hemorrhage, mass.Her blood tests are also unremarkable including a normal troponin. Chest x-ray is without cardiopulmonary abnormality. Because the patient received a thrombolytic, she will need to be transferred to a higher level of care. After several hour stay in [facility] ED due to waiting for bed availability at appropriate facility, she is transferred to [facility] in [place]. Departure - Departure Disposition: 02 Transfer Acute Care Hosp Clinical Impression: Cerebrovascular accident (CVA) Qualifiers: CVA mechanism: unspecified Qualified Code(s): I63.9 - Cerebral infarction, unspecified Condition: Stable Forms: PCP List Discharge Date/Time: 01/08/24 02:45 NIHSS - Time Time: 21:10 - Level of Consciousness Level of consciousness: (0) Alert, Keenly responsive LOC Questions: (0) Answers both Q's correct LOC Commands: (0) Performs both correctly - Gaze Best Gaze: (0) Normal - Visual Visual: (0) No loss - Facial Palsy Facial Palsy: (0) Normal, symmetrical movement - Motor Arms (both separate) Motor Arm (right): (0) No drift Motor Arm (left): (0) No drift - Motor Legs (both separate) Motor Leg (right): (0) No drift Motor Leg (left): (1) Drift - Limb Ataxia Limb Ataxia: (1) Present in 1 limb - Sensory Sensory: (0) Normal - Best Language Best Language: (1) [id number] - Dysarthria Dysarthria: (0) Normal - Extinction and Inattention (formally neg Extinction and inattention: (0) No abnormality - Total Score/Results Total Score/Result: 3
[2024-01-07] MEDS ORDERED: iohexoL-300 100 ML VIAL ONE (21:03)
--- NOTE | 2024-01-07 21:28 | CT Report ---
PROCEDURE: Head W/O Stroke Protocol INDICATIONS: syncope, LLE weakness TECHNIQUE: Noncontrast 4.5 mm thick angled axial sections acquired from the foramen magnum to the vertex, with c oronal reformats. For radiation dose reduction, the following was used: automated exposure control, adjustment of mA and/or kV according to patient size. COMPARISON: None. FINDINGS: Image quality: Excellent. CSF spaces: Basal cisterns are patent. No extra-axial fluid collections. Ventricles are normal in size and shape. Brain: No midline shift. No intracranial masses or hemorrhage. Hough-white matter interface is norm al. Skull and face: Calvarium and visualized facial bones are intact, without suspicious lesions. Sinuses: Visualized sinuses and mastoids are clear. IMPRESSION: No acute intracranial abnormality. Findings were discussed with the referring physician, Dr. Roper, by telephone 01/07/2024 at 9:26 PM. This study fulfills neurological imaging criteria for inclusion or exclusion of acute stroke therapie s based on available published neurological imaging guidelines. Reviewed by: uJanito Chirinos MD on 01/07/2024 9:26 PM PDT Approved by: Juanito Chirinos MD on 01/07/2024 9:26 PM PDT Station ID: [id number]
--- NOTE | 2024-01-07 21:39 | CT Report ---
PROCEDURE: Angio Head/Neck INDICATIONS: syncope, LLE weakness, mild expressive aphasia TECHNIQUE: After the administration of intravenous contrast, 1 mm thick sections acquired from the aortic arch t hrough the [place] of [place]. 3-dimensional zvfkhgd-ozgnbwswj-txbtyxhjmo (MIP) and/or volume renderin g reformats were acquired of the central intracranial vasculature and neck separately. For radiation dose reduction, the following was used: automated exposure control, adjustment of mA and/or kV acco rding to patient size. CONTRAST: 80ml [id number] COMPARISON: CT head 01/07/2024. FINDINGS: Image quality: Diagnostic. HEAD CT: CSF Spaces: Basal cisterns are patent. No extra-axial fluid collections. Ventricles are normal in size and shape. Brain: No significant abnormality is seen for scanning technique. Skull and face: Calvarium and visualized facial bones appear intact, without suspicious lesions. Sinuses: Visualized sinuses and mastoids are clear. HEAD CT ANGIOGRAPHY: Anterior circulation: Intracranial internal carotid arteries are normal in size and flow. The flow within the paired anterior cerebral arteries is normal and symmetric. The flow within the middle cer ebral arteries is normal and symmetric. The anterior communicating artery is seen. No aneurysms are seen. Posterior circulation: Visualized portions of the vertebral arteries demonstrate normal caliber, and join to form a normal appearing basilar artery. Flow within the posterior cerebral arteries is norm al and symmetric. No aneurysms are seen. NECK CT ANGIOGRAPHY: Carotid system: The great vessels demonstrate a conventional anatomy as they arise from the aortic a rch. Focal plaque is seen at the proximal brachiocephalic trunk without hemodynamically significant stenosis. The origins of the common carotid arteries appear patent. The common carotid arteries demo nstrate normal caliber and courses. The bifurcation regions are both widely patent. The internal ca rotid arteries demonstrate normal calibers and courses. Posterior circulation: The origins of the vertebral arteries both appear widely patent. The more quinonez perior extracranial portions of both vertebral arteries also demonstrate normal courses and calibers. They join to form a normal appearing basilar artery. Soft tissues: Visualized neck soft tissues demonstrate no suspicious abnormalities. Mild paraseptal emphysema in the lung apices. Bones: No suspicious bony lesions. Mild degenerative changes of the mid cervical spine. IMPRESSION: No significant intracranial arterial abnormality is seen. No significant abnormality is seen within the arteries of the neck. The estimate of stenosis included in the report of the imaging study was calculated using the NASCET method Reviewed by: Juanito Chirinos MD on 01/07/2024 9:38 PM PDT Approved by: Juanito Chirinos MD on 01/07/2024 9:38 PM PDT Station ID: [id number]
[2024-01-07] MEDS: TENECTEPLASE 50 MG/10 ML VIAL IVP STA (21:46)
[2024-01-07 21:48] LABS: BASOPHILS % (AUTO) 0.3 %; EOSINOPHILS % (AUTO) 0.5 %; HCT - HEMATOCRIT 36.3 % (37.0-47.0); HGB - HEMOGLOBIN 12.1 g/dL (12.0-16.0); LYMPHOCYTES # (AUTO) 1.1 10^3/uL (1.5-3.5); LYMPHOCYTES % (AUTO) 18.7 %; MEAN CORPUSCULAR HEMOGLOBIN 31.8 pg (27.0-31.0); MEAN CORPUSCULAR HGB CONC 33.3 g/dL (32.0-36.0); MEAN CORPUSCULAR VOLUME 95.5 fL (81.0-99.0); MEAN PLATELET VOLUME 10.3 fL (7.9-10.8); MONOCYTES # (AUTO) 0.5 10^3/uL (0.0-1.0); NEUTROPHILS # (AUTO) 4.4 10^3/uL (1.5-6.6); NEUTROPHILS % (AUTO) 72.2 %; PLT - PLATELET COUNT 214 10^3/uL (130-450); RED CELL DISTRIBUTION WIDTH 12.9 % (12.0-15.0); WHITE BLOOD COUNT 6.1 x10^3/uL (4.8-10.8)
[2024-01-07 22:08] LABS: TROPONIN I HIGH SENSITIVITY 2.5 ng/L (2.3-14.8)
[2024-01-07 22:12] LABS: ALBUMIN 3.8 g/dL (3.2-5.5); ALBUMIN/GLOBULIN RATIO 1.7 (1.0-2.2); BILIRUBIN,TOTAL 0.4 mg/dL (0.2-1.0); CALCIUM 9.2 mg/dL (8.5-10.3); CREATININE 0.8 mg/dL (0.6-1.3); POTASSIUM 3.6 mmol/L (3.5-4.5); TOTAL PROTEIN 6.1 g/dL (6.4-8.9)
--- NOTE | 2024-01-07 22:20 | XRAY Report ---
PROCEDURE: Chest 2V INDICATIONS: dyspnea, syncope TECHNIQUE: 2 views of the chest were acquired. COMPARISON: Chest regressed 02/08/2019. FINDINGS: Surgical changes and devices: None. Lungs and pleura: No pleural effusions or pneumothorax. Lungs are clear. Mediastinum: Mediastinal contours appear normal. Heart size is normal. Bones and chest wall: No suspicious bony lesions. Overlying soft tissues appear unremarkable. IMPRESSION: No acute cardiopulmonary process. Reviewed by: Juanito Chirinos MD on 01/07/2024 10:18 PM PDT Approved by: Juanito Chirinos MD on 01/07/2024 10:18 PM PDT Station ID: [id number]
[2024-01-07 23:32] LABS: BILIRUBIN,URINE NEGATIVE (NEGATIVE); GLUCOSE, URINE (UA) NEGATIVE (NEGATIVE); KETONES,URINE (UA) NEGATIVE (NEGATIVE); LEUKOCYTE ESTERASE, URINE NEGATIVE (NEGATIVE); NITRITE,URINE POSITIVE (NEGATIVE); OCCULT BLOOD,URINE NEGATIVE (NEGATIVE); PH,URINE 6.5 PH (5.0-7.5); PROTEIN,URINE NEGATIVE (NEGATIVE); UROBILINOGEN,URINE 0.2 (NORMAL) E.U./dL (NORMAL)
[2024-01-07 23:39] LABS: CLARITY,URINE CLEAR (CLEAR)
[2024-01-07 23:40] LABS: BACTERIA,URINE Few /HPF (None Seen); RBC,URINE 0-5 /HPF (0-5); SQUAMOUS EPITHELIAL CELL,UR FEW Squamous (<= Few); WBC,URINE 0-3 /HPF (0-5)
[2024-01-08 02:25] VITALS: BP 105/61; O2SAT 95
== END 2024-01-08 02:45 | disposition short-term general hospital (02) ==
LOC: EDUNIT# → ED 20:19
DX: I63.9 Cerebral infarction, unspecified (principal); J44.9 Chronic obstructive pulmonary disease, unspecified
CPT/HCPCS: 36415; 37195; 70450; 70496; 70498; 71046; 80053; 81001; 83690; 84484; 85025; 87086; 93005; 99285; J3101; Q9967; 81003